=== PATIENT | female | born 1975 | race Hispanic/Latino ===

== ENCOUNTER 2018-09-18 09:09 | Observation (INO) | payer BC ==
[2018-09-13 16:09] VITALS: BMI 22.1
[2018-09-18] MEDS ORDERED: Rocuronium 10 mg/ml (5 ml) ONE (09:26)
[2018-09-18] MEDS ORDERED: Propofol 10 mg/ml Inj (20 ML) ONE (09:26)
[2018-09-18] MEDS ORDERED: Succinylcholine Chloride 20 mg/ml Syr (5 ml) IV ONE (09:26)
[2018-09-18] MEDS ORDERED: Lidocaine 4% (Laryng-O-Jet) Kit MM ONE (09:26)
[2018-09-18] MEDS ORDERED: ceFAZolin IV 1 gm in Dextrose 1 GM/50 ML BAG IVPB ONE (09:30)
[2018-09-18] MEDS: Bupivacaine 0.5% Inj(30mL) ONE ×3 (09:46→14:50)
[2018-09-18] MEDS ORDERED: Lactated Ringer's 1,000 ML IV ONE ×7 (09:47→16:43)
[2018-09-18 10:31] LABS: BASO % 0.6 % (0.0-2.0); EOS # 0.1 K/uL (0.0-0.7); EOS % 1.9 % (0.0-4.0); HEMOGLOBIN 13.2 g/dL (12.0-16.0); LYMPH # 1.9 K/uL (1.0-4.3); LYMPH % 26.5 % (20.0-40.0); MEAN CELL VOLUME 91.3 fl (81.0-99.0); MEAN CORPUSCULAR HGB CONC 32.9 g/dL (33.0-37.0); MEAN PLATELET VOLUME 10.6 fl (7.2-11.7); MONO # 0.9 K/uL (0.0-0.8); MONO % 12.1 % (0.0-10.0); NEUT # 4.2 K/uL (1.8-7.0); NEUT % 58.9 % (50.0-75.0); NRBC % 0.2 % (0.0-0.0); RBC 4.38 Mil/uL (3.80-5.20); RED CELL DISTRIBUTION WIDTH 12.8 % (11.5-14.5); WHITE BLOOD COUNT 7.1 K/uL (4.8-10.8)
[2018-09-18] MEDS ORDERED: Midazolam 2 MG/2 ML VIAL ONE (12:22)
[2018-09-18] MEDS ORDERED: Etomidate 20 mg/10ml Inj IV ONE (12:24)
[2018-09-18] MEDS ORDERED: Dexamethasone 4 mg/1 ml ONE (12:43)
[2018-09-18] MEDS ORDERED: Neostigmine 1:1000 (1 mg/ml) Inj ONE (14:45)
[2018-09-18] MEDS: Lactated Ringer's 1,000 ML IV SCH ×2 (15:07→20:57)
[2018-09-18] MEDS ORDERED: Oxycodone/Acetaminophen 5/325 mg Tab PO PRN (15:13)
--- NOTE | 2018-09-18 15:16 | CP.SDSHP ---
Same Day Surgery H & P - History Proposed Procedure: H&P in paper chart - Allergies Allergies: Allergies No Known Allergies Allergy (Verified 09/13/18 16:09) - Physical Exam Vital Signs: Vital Signs 09/18/18 09/18/18 10:11 11:52 Temperature 97.7 F Pulse Rate 65 65 Respiratory 18 Rate Blood Pressure 97/60 L Short Stay Discharge - Short Stay Discharge Admitting Diagnosis/Reason for Visit: N80.0 Disposition: HOME/ ROUTINE Follow-up: Call office to schedule followup Additional Instructions (Diet, Activity): No heavy lifting for 4 weeks, you may shower in two days, no not peel off the glue it will fall off on its own
[2018-09-18] MEDS: HYDROmorphone 0.5 mg/0.5 ml ISec IVP PRN ×2 (15:40→16:08)
[2018-09-18] MEDS ORDERED: STERILE IRRIGATING SOLUTION 15 ML IR ONE (16:56)
--- NOTE | 2018-09-18 17:01 | OP ---
PROCEDURE DATE: 09/18/2017 SURGEON: Stiven Aranda MD POULTRY GRADER: Troy Boyd MD ANESTHESIOLOGIST: Michael Houston MD TYPE OF ANESTHESIA: General endotracheal. PREOPERATIVE DIAGNOSES: 1. Incapacitating pelvic pain. 2. Incapacitating abdominal pain. 3. Abnormal uterine bleeding. 4. History of pelvic endometriosis. 5. History of previously failed medical and surgical therapy. 6. Gastrointestinal and genitourinary symptoms. 7. Rule out interstitial cystitis. 8. History of severe endometriosis and pelvic adhesions POSTOPERATIVE DIAGNOSES: 1. Incapacitating pelvic pain. 2. Incapacitating abdominal pain. 3. Abnormal uterine bleeding. 4. History of pelvic endometriosis. 5. History of previously failed medical and surgical therapy. 6. History of severe endometriosis and pelvic adhesions. 7. Gastrointestinal and genitourinary symptoms. 8. 9. Mild ureteral distention. PROCEDURES PERFORMED: 1. Exam under anesthesia. 2. Video assisted hysteroscopy. 3. Cystoscopy. 4. Bilateral ureteral catheterization and injection of IC-Green dye. 5. Robotic da Chyna operative laparoscopy. 6. Treatment of endometriosis. 7. Excision of endometriosis. 8. Bilateral ureterolysis. 9. Bilateral ovariolysis. COMPLICATIONS: None. SAMPLES SENT: 1. Left Uterosacral l endometriosis. 2. Left periureteral endometriosis. 3. Right periureteral endometriosis. 4. Right uterosacral endometriosis. 5. Left and right ovarian fossa endometriosis. 6. Iliac endometriosis. 7. Posterior cervical endometriosis. 8. Rectal endometriosis, anterior. 9) Cul de sac endometriosis INDICATION FOR THE PROCEDURE AND CONSENT: The patient had a long history of pelvic pain, dysmenorrhea, dyspareunia, abdominal pain, and bladder pain. The patient had been thoroughly evaluated and counseled regarding the pros and cons of the procedure, the reasonable alternatives, and possible complications. She understood and accepted the risks involved. Literature was provided to the patient. The patient was understanding and given her history and per surgical exam, she was at high risk in an average patient. She accepted all the risks involved, and all the questions had been answered to her satisfaction. FINDINGS OF SURGERY: Genitalia: Normal external genitalia, cervix without lesion and polyps. Hysteroscopy: Hysteroscopy shows a clear uterine cavity with no polyps or masses noticed. Cystoscopy: The cystoscopy was performed to rule out endometriosis and also any interstitial cystitis and also injury. The bladder was normal with no evidence of stone, trigonitis, or cystitis. A positive jet flow was identified in both ureters. Laparoscopy: The upper abdomen appeared to be normal. Gallbladder was normal. Liver edges appeared to be normal. Ascending colon and transverse were normal. There was evidence of adhesions, fibrosis, and endometriosis of the rectovaginal and pelvic sidewalls. The appendix appeared to be . Both fallopian tubes appeared to be patent, although there was evidence of inflammation on the serosal surface of both fallopian tubes, and there was slight conglutination of both fimbriated ends although they both appeared to be functional. There was also evidence of mild hydroureters. DESCRIPTION OF THE PROCEDURE: Initiation of the case: After adequate anesthesia was obtained, the patient was placed in the dorsal lithotomy position, and with extreme care, placement of the patient with hyperextension and hyperflexing of the hips. At this point, the patient was prepped and draped. The surgeon was gowned and gloved. A timeout was taken according to the hospital procedure and the procedure was started. At this point, we performed cystoscopy, bilateral ureteral catheterization. A cystoscope was inserted into the bladder under direct visualization and the bladder was visualized. The bladder was free of lesions and tumors. There was no evidence of interstitial cystitis, and there was only mild amount of trigonitis. At this point, both ureters were identified and appeared to be in their normal anatomical position. At this point, utilizing an open 5-Dominican open-ended catheter, the left ureter was catheterized all the way to the distal ureter, and 5 mL of IC-Green was injected into this ureter. Similarly, the contralateral ureter was catheterized all the way to the distal ureter, and 5 mL of IC-Green was injected into the distal ureter. At this point, the stents were removed, and the cystoscope was removed, and the 16-Dominican Dumont was inserted into the bladder. At this point, we proceeded with a hysteroscopy. A speculum was placed into vagina, and the anterior lip of the cervix was grasped. The cervix was dilated, and a hysteroscope was inserted into the cavity. The cavity appeared to be of normal size with no evidence of polyps, cysts, adenomyosis, or fibroids. At this point, we proceeded with placement of a trocar and docking of the da Chyna Xi robot. The surgeon was re-gowned and gloved, and open laparoscopy was performed by making incision in the umbilicus and the fascia was incised. The peritoneum was entered in a blunt fashion, and the cannula was inserted under direct visualization. The abdomen was insufflated, and under direct visualization, three additional ports were inserted in the left upper quadrant, left mid quadrant, and right upper quadrant. At this point, the da Chyna Xi robot was brought into the field and docked, and the instruments were inserted under direct visualization. All this with extreme care not to injure the bowel or another area. As per dictation, the upper abdomen appeared to be normal with no evidence of any lesions. At this point, we proceeded with a left ureterolysis. The ureter appeared to be dilated and was clearly identified utilizing IC-Green fluorescent technology. Anesthesia was made in the peritoneum at the top of the pelvic brim, and the incision was then carried down all the way opening the peritoneum all the way down from the pelvic brim, all the way down to the ovarian fossa, extending the incision below the ovary. It was a progressive dissection where the ureter was progressively lateralized and peritoneum was medialized, thus freeing the ureter all the way down to the cross of the uterine vessels. After this was done, the ureter was freed and lateralized, and a larger peritoneum which had been opened, was excised, and sent to pathology. At this point, with the aid of very slow process, I was able to elevate the ovary and proceed with ovariolysis. At this point, we proceeded with a left ovariolysis. The left ovary was adherent to the posterior aspect of the uterus. It was gently dissected in a step by step way. It was peeled off, the ovarian fossa, andan area of extensive fibrosis and endometriosis was exposed. At this point, we proceeded with a right ureterolysis. The ureter was identified again utilizing fluorescent technology on the right hand side and retroperitoneal space was entered, and a full dissection was performed,entering the retroperitoneal space and dissecting the ureter, removing the ureter laterally and the peritoneum medially. A full dissection was performed all the way down to the ovarian fossa and the crossing of the uterine arteries. An area of peritoneum containing endometriosis was dissected and sent to Pathology. At this point, we proceeded with a right ovariolysis. The right ovary was adherent to the peritoneum. It was gently elevated progressively, and dissected off from the peritoneal area. All this done with extreme care to preserve vascularization to the ovary. At this point, we proceeded with treatment of endometriosis and excision of endometriosis. On the left hand side, fibrosis, especially in the left ovarian fossa was excised. In a very progressive step by step fashion, we dissected off fibrosis containing endometriosis and freed up the whole area. The ureters which had been lateralized. Areas of fibrosis and endometriosis were also identified in the posterior cul-de-sac and in the rectovaginal space which was also affected with endometriosis and fibrosis. At this point, we proceeded with the excision of perirectal endometriosis. The rectovaginal area had significant fibrosis and additional endometriosis was dissected from the posterior aspect of the uterus, and the rectovaginal space was entered at the level of the peritoneal reflection. All this done making sure that no damage to the rectum was performed. At this point, endometriosis was also excised from the right uterosacral area which also was affected by fibrosis and endometriosis. At this point, it was checked for hemostasis and appeared to be excellent. Both fallopian tubes were in good condition and patent. At this point we proceeded with destruction of inflammatory areas utilizing the j-plasma energy device. At this point the console was handed over to Dr. Boyd from General surgery who proceeded with appendectomy and repair of incisional hernia procedure. He will dictate that separately. After he was done we checked for hemostasis and organ integrity and all was normal. At this point, the da Chyna Xi robot was removed. The abdomen was desufflated, and the incisions were closed in layers with 0 PDS for the fascia and 4-0 Monocryl for the skin. At the end of the procedure, all tips and instrument counts were correct. The patient tolerated the procedure well and was taken to the recovery room in excellent condition. Rosi SORTO, Stiven HUMPHREYS
--- NOTE | 2018-09-18 17:14 | OP ---
OPERATIVE REPORT -Operative Report Date of Procedure: 09/18/2018 Surgeon: Troy Boyd MD Freight Team Associate: Stiven Aranda MD Anesthesiologist: Michael Houston MD Anesthesia: General Endo Pre-op Diagnosis: Abdominal pain and endometriosis Post-op Diagnosis: same Brief History: This 43year old woman was already brought to the operating room by Dr. Aranda and intraoperative surgical consult was requested for the appendix and evaluation of a right lower quadrant incisional hernia and intestinal involvement for endometriosis Procedure/Operation Description: 1. Appendectomy. 2-Repair incisional hernia right lower quadrant. Description of the Procedure: The patient had already been brought to the operating room and after taking control of the robotic console the appendix was retracted anteriorly and the mesentery was desiccated with monopolar cautery. The base was dissected free and 3 separate 3-0 Vicryl Endoloops were used to ligate the appendix. The appendix was transected marked and sent separately to pathology. The operation was then turned over to Dr. Sharla Remy (separate dictation). Once he completed this portion of the operation the incisional hernia in the right lower quadrant from her previous surgery was repaired primarily with continuous 3 0-0 PDS.. The operation was then turned over to Dr. Meyers (separate dictation Dr. Aranda). Estimated Blood Loss: 5 cc Complications: none Discharge & Condition: stable MTDD
[2018-09-18] MEDS ORDERED: Pantoprazole 40 mg EC Tab PO ONE (21:30)
[2018-09-19 09:23] VITALS: BP 94/60; PULSE 69; RESP 20; TEMP 99.6; O2SAT 100
--- NOTE | 2018-09-19 15:00 | CP.PCM.PN ---
Subjective - Date & Time of Evaluation Date of Evaluation: 09/19/18 Time of Evaluation: 10:00 - Subjective Subjective: Patient seen and examined at bedside comfortable. Admitted overnight due to uncontrolled pain. Able to get OOB ambulating without difficulties. Pain well controlled this AM. No other complaints. Denies CP/SOB/N/fever. Objective - Vital Signs/Intake and Output Vital Signs (last 24 hours): Temp Pulse Resp BP Pulse Ox 99.6 F 69 20 94/60 L 100 09/19/18 09:00 09/19/18 09:00 09/19/18 09:00 09/19/18 09:00 09/19/18 09:00 - Labs Labs: 09/18/18 10:00 - GI/Abdominal Exam GI & Abdominal Exam: Soft, Normal Bowel Sounds. absent: Tenderness Additional comments: Dressing CDI, no drainage no masses, no ecchymosis Assessment and Plan (1) Endometriosis Assessment & Plan: POD #1 s/p Kaitlyn assisted endometriosis tissue removal -OOB -Diet as tolerated -stable for d/c to home -f/u in office in 7-10 days -above d/w Dr. Aranda in agreement Status: Acute
--- NOTE | 2018-09-20 13:28 | PCM.OP ---
Operative Report - Operative Report Date of Surgery/Procedure: 09/18/18 Time of Surgery/Procedure: 08:00 Surgeon: Dr. Troy Boyd Doughmaker: Dr. Stiven Aranda Anesthesia/Sedation: General/Dr. Houston Pre-Operative Diagnosis: Abdominal pain and endometriosis Post-Operative Diagnosis: Same Indication for Surgery: As above Operative Findings: Endometriosis and intestinal involvement Procedure/Operation Description: 1 repair of incisional hernia right lower quadrant 2 appendectomy Brief history: This is a [43]-year-old man who is already brought to the operating room by Dr. Stiven Aranda and intraoperative [consultation] was requested for the evaluation of a right lower quadrant incisional hernia and intestinal involvement for endometriosis Description of procedure: The patient had already brought to the operating room by (separate dictation). After taking over the robotic console the appendix was retracted anteriorly and the mesentery was desiccated with monopolar cautery. The base was dissected free and 3 separate 3-0 Vicryl Endoloops were used to ligate the appendix. The appendix was transected marked and sent separately to pathology. The operation was then turned over to Dr. Sharla Remy (separate dictation). Once he completed this portion of the operation the incisional hernia in the right lower quadrant from her previous surgery was repaired primarily with continuous 3 0-0 PDS. The operation was then turned back over to Dr. Aranda (separate dictation). Estimated Blood Loss: 5 cc Complications: None Discharge & Condition: Stable
== END 2018-09-19 12:20 | disposition home or self-care (01) ==
LOC: H.OPSURG 09:09 → H.PEDS 19:48 → H.OPSURG 21:29
PROVIDERS: ADMIT Obstetrics & Gynecology Reproductive Endocrinology; ATTEND Obstetrics & Gynecology Reproductive Endocrinology
DX: N80.0 Endometriosis of uterus (principal); N80.1 Endometriosis of ovary; N80.3 Endometriosis of pelvic peritoneum; N80.5 Endometriosis of intestine; N93.9 Abnormal uterine and vaginal bleeding, unspecified; K43.2 Incisional hernia without obstruction or gangrene; N13.4 Hydroureter; N73.6 Female pelvic peritoneal adhesions (postinfective)
CPT/HCPCS: 36415; 44970; 45999; 49654; 50949; 52005; 58662; 85025; 86850; 86900; 88304; 88305; 96365; C1729; G0378; J0131; J0690; J1100; J1170; J1885; J2001; J2250; J2405; J2704; J2710; J2765; J3010; J7030; J7120; S2900